=== PATIENT | female | born 1940 | race Caucasian/White ===

== ENCOUNTER 2017-03-11 13:04 | Emergency (ER) | payer OTHER, MEDICARE ==
[~2017-03-11] VITALS: Ht 160 cm; Wt 63.0 kg
[~2017-03-11 13:04] MED LIST: ASPIR 8181 M1; ASPIRIN E.C.81 M1 PO; ASPIRIN E.C.81 M2 PO; ASPIRIN81 M1 PO; CALCIUM 500 WI1 EAC1 PO; CARDIZEM CD180 MG; CEFTIN250 MG PO; COUMADIN,JANTOVE1 MG PO; COUMADIN,JANTOVE2 MG; COUMADIN3 M1 PO; COUMADIN3 MG PO; Cardizem CD,Cartia X PO; Coumadin,Jantoven PO; DELTASONE20 MG PO; DILTIAZEM ER180 M2 PO; DUONEB3 ML IH; FISH OIL 1,0001 EA10 PO; Flagyl PO; HYOMAX-SR PO; LO-DOSE ASPIRIN81 M2 PO; Lactinex,Floranex PO; OXYCODONE5 MG PO; RAMIPRIL2.5 MG PO; SERTRALINE HCL25 MG PO; SERTRALINE HCL50 MG PO; SIMVASTATIN10 M1 PO; SIMVASTATIN10 MG PO; SIMVASTATIN40 MG PO; SPIRIVA1 INHALATI IH; TAZTIA XT240 MG PO; TAZTIA XT360 MG PO; TRAVATAN Z5 ML BOTH EYES; TYLENOL EXTRA500 MG PO; TYLENOL WITH C1 EACH PO; VENTOLIN HFA18 GM IH; WARFARIN SODIUM1 MG PO; WARFARIN SODIUM3 MG PO; ZESTRIL,PRINIVI10 M1 PO; ZESTRIL10 MG PO; ZOLOFT25 MG; Zocor PO; Zoloft PO
[2017-03-11 14:18] LABS: HEMATOCRIT 37.2 % (36.0-46.0); MCH 28.4 PG (29.0-34.0); MCHC 32.8 G/DL (30.0-36.0); MCV 86.5 FL (83-99); MEAN PLAT.VOLUME 8.4 uM^3 (9.5-12.4); NRBC (%) 0.3 /100 WBC (0-0); PLATELET COUNT 305 K/uL (156-360); RBC DIS.WIDTH-CV 14.5 % (11.8-14.6); WHITE BLOOD COUNT 6.4 K/uL (4.1-10.2)
[2017-03-11 14:27] LABS: CHLORIDE 103 mEq/L (99-109); POTASSIUM 4.4 mEq/L (3.7-5.4); SODIUM 137 mEq/L (136-147)
[2017-03-11 14:29] LABS: GLUCOSE 99 mg/dL (70-99)
[2017-03-11 14:30] LABS: ANION GAP 11 MEQ/L (2-14)
[2017-03-11 14:31] LABS: TOTAL BILIRUBIN 0.5 mg/dL (0.0-1.0)
[2017-03-11 14:32] LABS: ALKALINE PHOSPHATASE 111 IU/L (3-129)
[2017-03-11 14:33] LABS: GFR ESTIMATE (CALCULATED) 58 mL/min/
[2017-03-11 14:34] LABS: DIRECT BILIRUBIN 0.2 mg/dL (0.0-0.3); UREA NITROGEN (BUN) 18 mg/dL (9-23)
[2017-03-11 14:36] LABS: LIPASE 31 U/L (1.0-51.0)
[2017-03-11] MEDS ORDERED: ZOFRAN4 MG PO (16:04)
[2017-03-11 17:34] VITALS: BP 193/88
== END 2017-03-11 17:40 | disposition home or self-care (01) ==
LOC: EME 13:04
PROVIDERS: Emergency Medicine
DX: B02.9 Zoster without complications (principal); R11.2 Nausea with vomiting, unspecified; J44.9 Chronic obstructive pulmonary disease, unspecified; I10 Essential (primary) hypertension; F32.9 Major depressive disorder, single episode, unspecified; Z79.01 Long term (current) use of anticoagulants; Z86.73 Personal history of transient ischemic attack (TIA), and cerebral infarction without residual deficits; Z85.9 Personal history of malignant neoplasm, unspecified; Z95.0 Presence of cardiac pacemaker; Z88.0 Allergy status to penicillin; Z88.2 Allergy status to sulfonamides; Z88.8 Allergy status to other drugs, medicaments and biological substances; Z87.891 Personal history of nicotine dependence
CPT/HCPCS: 80048; 80076; 83690; 85027; 99281; 99285; J2405; J7030; J7512

== ENCOUNTER 2017-03-21 14:56 | Emergency (ER) | payer OTHER, MEDICARE ==
[~2017-03-21] VITALS: Ht 160 cm; Wt 56.8 kg
[~2017-03-21 14:56] MED LIST changes: +ZOFRAN4 MG PO
[2017-03-21 15:04] VITALS: BP 130/88
[2017-03-21] MEDS ORDERED: ULTRACET1 TABLET PO (16:59)
== END 2017-03-21 17:51 | disposition home or self-care (01) ==
LOC: EME 14:56
DX: S83.421A Sprain of lateral collateral ligament of right knee, initial encounter (principal); S83.521A Sprain of posterior cruciate ligament of right knee, initial encounter; M85.80 Other specified disorders of bone density and structure, unspecified site; W10.9XXA Fall (on) (from) unspecified stairs and steps, initial encounter; Z79.01 Long term (current) use of anticoagulants; I10 Essential (primary) hypertension; I25.10 Atherosclerotic heart disease of native coronary artery without angina pectoris; Z95.1 Presence of aortocoronary bypass graft; Z95.0 Presence of cardiac pacemaker; Z87.891 Personal history of nicotine dependence; Z88.2 Allergy status to sulfonamides; Z88.1 Allergy status to other antibiotic agents
CPT/HCPCS: 73564; 99281; 99284

== ENCOUNTER 2017-04-11 12:56 | Emergency (ER) | payer OTHER, MEDICARE ==
[~2017-04-11] VITALS: Ht 160 cm; Wt 53.2 kg
[~2017-04-11 12:56] MED LIST changes: +ULTRACET1 TABLET PO
[2017-04-11 13:39] LABS: HEMATOCRIT 36.7 % (36.0-46.0); HEMOGLOBIN 12.6 G/DL (11.9-15.5); MCH 29.2 PG (29.0-34.0); MCHC 34.3 G/DL (30.0-36.0); MCV 85.2 FL (83-99); PLATELET COUNT 341 K/uL (156-360); RBC DIS.WIDTH-CV 15.1 % (11.8-14.6); RED BLOOD COUNT 4.31 M/uL (3.80-5.20); WHITE BLOOD COUNT 5.8 K/uL (4.1-10.2)
[2017-04-11 13:54] LABS: INTER. NORMALIZED RATIO 6.5
[2017-04-11 15:27] VITALS: BP 163/95
== END 2017-04-11 15:28 | disposition home or self-care (01) ==
LOC: EME 12:56
PROVIDERS: Emergency Medicine
DX: R79.1 Abnormal coagulation profile (principal); Z79.01 Long term (current) use of anticoagulants; J44.9 Chronic obstructive pulmonary disease, unspecified; I10 Essential (primary) hypertension; R73.03 Prediabetes; F32.9 Major depressive disorder, single episode, unspecified; Z95.0 Presence of cardiac pacemaker; Z87.891 Personal history of nicotine dependence; Z86.73 Personal history of transient ischemic attack (TIA), and cerebral infarction without residual deficits; Z79.82 Long term (current) use of aspirin; Z88.2 Allergy status to sulfonamides; Z88.0 Allergy status to penicillin; Z88.1 Allergy status to other antibiotic agents; Z88.8 Allergy status to other drugs, medicaments and biological substances
CPT/HCPCS: 85027; 85610; 99281; 99284

== ENCOUNTER 2017-08-31 21:52 | Observation (INO) | payer OTHER, MEDICARE ==
[~2017-08-31] VITALS: Ht 160 cm; Wt 54.5 kg
[~2017-08-31 21:52] MED LIST changes: +CARDIZEM SR90 MG PO; -TAZTIA XT360 MG PO
[2017-08-31 22:39] LABS: INTER. NORMALIZED RATIO 3.7; PTT 45.9 SEC (25-37)
[2017-08-31 22:53] LABS: BASOPHIL (%) 0.4 % (0-1); EOSINOPHIL (%) 3.4 % (0-5); EOSINOPHIL COUNT 0.3 K/uL (0-0.3); HEMATOCRIT 31.7 % (36.0-46.0); HEMOGLOBIN 10.2 G/DL (11.9-15.5); IMMATURE GRANULOCYTE (%) 0.3 % (0.0-0.7); LYMPHOCYTE (%) 22.2 % (15-42); MCH 28.6 PG (29.0-34.0); MCHC 32.2 G/DL (30.0-36.0); MCV 88.8 FL (83-99); MONOCYTE (%) 7.8 % (3-12); MONOCYTE COUNT 0.7 K/uL (0-0.8); NEUTROPHIL (%) 65.9 % (45-76); NEUTROPHIL COUNT 5.9 K/uL (1.8-6.4); PLATELET COUNT 349 K/uL (156-360); RBC DIS.WIDTH-CV 13.3 % (11.8-14.6); RBC DIS.WIDTH-SD 43.6 % (39-53); RED BLOOD COUNT 3.57 M/uL (3.80-5.20)
[2017-09-01 00:44] LABS: CHLORIDE 104 mEq/L (99-109); POTASSIUM 4.2 mEq/L (3.7-5.4); SODIUM 139 mEq/L (136-147)
[2017-09-01 00:46] LABS: GLUCOSE 129 mg/dL (70-99)
[2017-09-01 00:49] LABS: CREATININE 1.2 mg/dL (0.6-1.3); GFR ESTIMATE (CALCULATED) 47 mL/min/
[2017-09-01 00:50] LABS: UREA NITROGEN (BUN) 23 mg/dL (9-23)
[2017-09-01 00:57] LABS: TROP-I INTERPRETATION NEGATIVE; TROPONIN-I < 0.01 ng/mL (0.0-0.30)
[2017-09-01 04:15] VITALS: BP 161/76
[2017-09-01 07:40] LABS: HEMATOCRIT 34.4 % (36.0-46.0); HEMOGLOBIN 11.4 G/DL (11.9-15.5); MCH 29.3 PG (29.0-34.0); MCHC 33.1 G/DL (30.0-36.0); MCV 88.4 FL (83-99); PLATELET COUNT 377 K/uL (156-360); RBC DIS.WIDTH-CV 13.3 % (11.8-14.6); RBC DIS.WIDTH-SD 43.4 % (39-53); RED BLOOD COUNT 3.89 M/uL (3.80-5.20); WHITE BLOOD COUNT 8.2 K/uL (4.1-10.2)
[2017-09-01 07:56] LABS: TROP-I INTERPRETATION NEGATIVE; TROPONIN-I 0.01 ng/mL (0.0-0.30)
[2017-09-01 07:58] LABS: ALBUMIN 3.7 G/DL (3.2-4.8); ALKALINE PHOSPHATASE 110 IU/L (3-129); ALT (GPT) 7 IU/L (3-49); AST (GOT) 13 IU/L (2-34); CHLORIDE 106 MEQ/L (99-109); CREATININE 0.9 MG/DL (0.6-1.3); GFR ESTIMATE (CALCULATED) > 59 mL/min/; GLUCOSE 100 mg/dL (70-99); POTASSIUM 4.8 MEQ/L (3.7-5.4); SODIUM 142 MEQ/L (136-147); TOTAL BILIRUBIN 0.2 MG/DL (0.0-1.0); TOTAL PROTEIN 6.5 G/DL (6.4-8.3); UREA NITROGEN (BUN) 18 mg/dL (9-23)
[2017-09-01 08:30] VITALS: BP 172/79
[2017-09-01 09:25] LABS: INTER. NORMALIZED RATIO 3.4
[2017-09-01 12:10] VITALS: BP 144/65; BP 178/86
[2017-09-01] MEDS ORDERED: RAMIPRIL10 MG PO ×2 (12:35→13:11)
[2017-09-01] MEDS ORDERED: CLONIDINE HCL0.1 MG PO ×2 (12:35→13:11)
[2017-09-01 13:10] LABS: TROP-I INTERPRETATION NEGATIVE; TROPONIN-I < 0.01 ng/mL (0.0-0.30)
== END 2017-09-01 13:50 | disposition home or self-care (01) ==
LOC: EME → EDBD 21:52 → EDOF 09-01 02:51 → ENRESERV 09-01 02:54 → 4SOUTH 09-01 04:08
PROVIDERS: Hospitalist; Internal Medicine
DX: I16.0 Hypertensive urgency (principal); I10 Essential (primary) hypertension; S20.219A Contusion of unspecified front wall of thorax, initial encounter; S09.90XA Unspecified injury of head, initial encounter; W18.30XA Fall on same level, unspecified, initial encounter; R79.1 Abnormal coagulation profile; Z79.01 Long term (current) use of anticoagulants; D64.9 Anemia, unspecified; I48.0 Paroxysmal atrial fibrillation; Z95.2 Presence of prosthetic heart valve; F32.9 Major depressive disorder, single episode, unspecified; J44.9 Chronic obstructive pulmonary disease, unspecified; I49.5 Sick sinus syndrome; Z95.0 Presence of cardiac pacemaker; E78.5 Hyperlipidemia, unspecified; Z86.19 Personal history of other infectious and parasitic diseases; Z86.73 Personal history of transient ischemic attack (TIA), and cerebral infarction without residual deficits; Z83.3 Family history of diabetes mellitus; Z82.49 Family history of ischemic heart disease and other diseases of the circulatory system; Z82.3 Family history of stroke; Z88.0 Allergy status to penicillin; Z88.2 Allergy status to sulfonamides; Z88.1 Allergy status to other antibiotic agents; Z88.8 Allergy status to other drugs, medicaments and biological substances
CPT/HCPCS: 70450; 71101; 72125; 80048; 80053; 84484; 85025; 85027; 85610; 85730; 93005; 99281; 99285; G0378

== ENCOUNTER 2017-09-03 08:53 | Emergency (ER) | payer OTHER, MEDICARE ==
[~2017-09-03] VITALS: Ht 160 cm; Wt 49.0 kg
[~2017-09-03 08:53] MED LIST changes: +CLONIDINE HCL0.1 MG PO; +RAMIPRIL10 MG PO
[2017-09-03 09:38] LABS: BASOPHIL (%) 0.4 % (0-1); EOSINOPHIL (%) 2.8 % (0-5); EOSINOPHIL COUNT 0.2 K/uL (0-0.3); HEMATOCRIT 30.1 % (36.0-46.0); HEMOGLOBIN 10.2 G/DL (11.9-15.5); IMMATURE GRANULOCYTE (%) 0.4 % (0.0-0.7); LYMPHOCYTE (%) 20.6 % (15-42); LYMPHOCYTE COUNT 1.5 K/uL (1.0-2.8); MCH 29.3 PG (29.0-34.0); MCHC 33.9 G/DL (30.0-36.0); MCV 86.5 FL (83-99); MONOCYTE (%) 7.5 % (3-12); MONOCYTE COUNT 0.5 K/uL (0-0.8); NEUTROPHIL (%) 68.3 % (45-76); NEUTROPHIL COUNT 4.8 K/uL (1.8-6.4); PLATELET COUNT 319 K/uL (156-360); RBC DIS.WIDTH-CV 13.2 % (11.8-14.6); RBC DIS.WIDTH-SD 41.5 % (39-53); RED BLOOD COUNT 3.48 M/uL (3.80-5.20); WHITE BLOOD COUNT 7.1 K/uL (4.1-10.2)
[2017-09-03 09:47] LABS: CHLORIDE 102 mEq/L (99-109); POTASSIUM 4.4 mEq/L (3.7-5.4); SODIUM 136 mEq/L (136-147)
[2017-09-03 09:48] LABS: INTER. NORMALIZED RATIO 2.6
[2017-09-03 09:49] LABS: GLUCOSE 101 mg/dL (70-99)
[2017-09-03 09:51] LABS: PTT 36.9 SEC (25-37)
[2017-09-03 09:52] LABS: GFR ESTIMATE (CALCULATED) 39 mL/min/
[2017-09-03 09:53] LABS: CREATININE 1.4 mg/dL (0.6-1.3); UREA NITROGEN (BUN) 36 mg/dL (9-23)
[2017-09-03 09:59] LABS: TROP-I INTERPRETATION NEGATIVE; TROPONIN-I 0.02 ng/mL (0.0-0.30)
[2017-09-03 12:16] VITALS: BP 105/61
== END 2017-09-03 12:17 | disposition home or self-care (01) ==
LOC: EME 08:53
PROVIDERS: Emergency Medicine
DX: R42 Dizziness and giddiness (principal); I10 Essential (primary) hypertension; J44.9 Chronic obstructive pulmonary disease, unspecified; Z86.73 Personal history of transient ischemic attack (TIA), and cerebral infarction without residual deficits; Z79.01 Long term (current) use of anticoagulants; Z88.0 Allergy status to penicillin; Z88.2 Allergy status to sulfonamides; Z88.8 Allergy status to other drugs, medicaments and biological substances; Z87.891 Personal history of nicotine dependence
CPT/HCPCS: 71045; 80048; 84484; 85025; 85610; 85730; 93005; 99281; 99284